=== PATIENT | male | born 2000 | race Caucasian/White ===

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

== ENCOUNTER 2022-06-04 17:08 | Emergency (ER) | payer BC, SELFPAY ==
[~2022-06-04] VITALS: Ht 185.4 cm; Wt 101.0 kg
[~2022-06-04 17:08] MED LIST changes: -OMEP10CA78 PO; +OMEP1CAP71 PO; -SIME180C PO; +SIME180C25 PO
[2022-06-04] MEDS ORDERED: HYDR25OIN TOP (19:56)
[2022-06-04 20:00] VITALS: BP 147/74
== END 2022-06-04 20:03 | disposition home or self-care (01) ==
LOC: M ED 17:08
DX: L42 Pityriasis rosea (principal); F17.200 Nicotine dependence, unspecified, uncomplicated; Z88.1 Allergy status to other antibiotic agents

== ENCOUNTER → 2022-09-24 | Outpatient (CLI) | payer BC ==
[~2022-09-24] MED LIST changes: +HYDR25OIN TOP
[2022-09-24 11:13] LABS: BASO % 0.5 % (0.0-1.0); EOS # 0.5 10^3/uL (0.0-0.5); EOS % 6.3 % (0.0-3.0); HEMATOCRIT 50.2 % (42.0-52.0); HEMOGLOBIN 16.7 g/dl (13.5-17.5); LYMPH # 1.5 10^3/uL (1.5-5.0); LYMPH % 20.6 % (24.0-44.0); MEAN CORPUSCULAR HEMOGLOBIN 31.3 pg (27.0-33.0); MEAN CORPUSCULAR HGB CONC 33.3 g/dl (32.0-36.5); MONO # 0.7 10^3/uL (0.0-0.8); MONO % 9.2 % (2.0-8.0); NEUTROPHILS # 4.7 10^3/uL (1.5-8.5); PLATELET COUNT, AUTOMATED 217 10^3/uL (150-450); RED BLOOD COUNT 5.34 10^6/uL (4.30-6.10); WHITE BLOOD COUNT 7.5 10^3/uL (4.0-10.0)
[2022-09-24 11:33] LABS: BLOOD UREA NITROGEN 12 MG/DL (9-23); CALCIUM LEVEL 9.4 MG/DL (8.5-10.1); CARBON DIOXIDE LEVEL 29 MMOL/L (20-31); CHLORIDE LEVEL 108 MMOL/L (98-107); CREATININE FOR GFR 0.88 MG/DL (0.70-1.30); GLOMERULAR FILTRATION RATE > 60.0 (>60); GLUCOSE, FASTING 66 MG/DL (60-100); POTASSIUM SERUM 4.6 MMOL/L (3.5-5.1); SODIUM LEVEL 140 MMOL/L (136-145)
[2022-09-24 11:35] LABS: TESTOSTERONE 516 NG/DL (241-827)
== END ==
LOC: M PLALAB 08:53
PROVIDERS: ATTEND Internal Medicine Hematology
DX: Z00.00 Encounter for general adult medical examination without abnormal findings (principal)